=== PATIENT | male | born 1945 | race Caucasian/White ===

== ENCOUNTER 2017-01-07 16:58 | Emergency (ER) | payer MEDICARE, OTHER ==
[~2017-01-07] VITALS: Ht 152.4 cm; Wt 68.0 kg
[2017-01-07] MEDS ORDERED: TAMS-3 PO (17:08)
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
[2017-01-07] MEDS ORDERED: IBUPROFEN 600 MG TABLET PO ONE (17:15)
--- NOTE | 2017-01-07 17:26 | NUR ---
OFFICER MARIBETH FROM [facility] ARRIVED TO ER.
[2017-01-07] MEDS ORDERED: IBUPROFEN 600 MG TABLET ONE (17:40)
--- NOTE | 2017-01-07 18:51 | NUR ---
PATIENT'S DAUGHTER AT BEDSIDE. PATIENT TO GO TO CT FOR KNEE AT THIS TIME. HE IS AWAKE AND ALERT WITH NO NEW COMPLAINTS.
--- NOTE | 2017-01-07 19:11 | NUR ---
PT STATES PAIN HAS DIMINISHED. PT TO CT SCAN NOW.
--- NOTE | 2017-01-07 19:12 | NUR ---
Received report from ELE Parnell. Assumed care of pt at this time. Pt in CT.
--- NOTE | 2017-01-07 19:30 | NUR ---
Pt returned from CT via gurney. Pt resting in position of comfort for self at this time. Daughter at bedside. Pt no complaints at this time. Sts pain is tolerable and denies need for medication.
--- NOTE | 2017-01-07 19:47 | NUR ---
Pt ambulated to and from br with slow steady shuffled gait.
--- NOTE | 2017-01-07 20:24 | NUR ---
Per Dr. Jenkins pt does not require knee immobilizer at this time. Pt stable for discharge per MD. Pt and family given ACI. Both verbalized understanding of dc instructions. Pt ambulated out of er with steady gait and ride home.
[2017-01-07 20:25] VITALS: BP 148/81
== END 2017-01-07 20:26 | disposition home or self-care (01) ==
LOC: ER 16:58
DX: S16.1XXA Strain of muscle, fascia and tendon at neck level, initial encounter (principal); S39.012A Strain of muscle, fascia and tendon of lower back, initial encounter; M23.91 Unspecified internal derangement of right knee; N40.0 Benign prostatic hyperplasia without lower urinary tract symptoms; Z88.0 Allergy status to penicillin; Y08.89XA Assault by other specified means, initial encounter; Y93.89 Activity, other specified; Y92.009 Unspecified place in unspecified non-institutional (private) residence as the place of occurrence of the external cause; Y99.9 Unspecified external cause status
CPT/HCPCS: 72110; 72125; 73700; A4663